=== PATIENT | female | born 1970 | race Caucasian/White ===

== ENCOUNTER → 2016-10-12 | Outpatient (CLI) | payer BC ==
--- NOTE | 2016-10-13 08:16 | MR ---
EXAMINATION TYPE: MR sacroiliac joints wo con DATE OF EXAM: 10/12/2016 8:40 PM COMPARISON: NONE HISTORY: Tai hip pain, limited movement Standard multiplanar, multisequence MRI departmental protocol Multiplanar, multisequence images of the SI joints were acquired. Diffusion weighted imaging was perf ormed. FINDINGS: SI joints are symmetric in appearance. There is no evidence of marrow edema or fatty replacement. No erosive changes seen. Postsurgical change of L5 suggestive of previous left hemilaminectomy severe degenerative disc diseas e. Central and left paracentral disc bulging with foraminal encroachment bilaterally greater on the l eft suspected. Facet arthropathy noted. IMPRESSION: 1. No evidence of sacroiliitis. 2. Postsurgical change L5 with disc bulging and foraminal encroachment as discussed above
--- NOTE | 2016-10-13 08:16 | MR ---
EXAMINATION TYPE: MR lumbar spine wo/w con DATE OF EXAM: 10/12/2016 8:55 PM COMPARISON: NONE Contrast: 16 mL MultiHance HISTORY: LBP radiating down left leg x 1 month, hx surgery TECHNIQUE: T1 and T2 axial and sagittal images of the lumbar spine are submitted. FINDINGS: There is no abnormal signal seen within the visualized spinal cord or paraspinal soft tissu es. Findings suspicious for tiny gallstones. At L1-2 there is no evidence of disc herniation or canal stenosis. No degenerative disc disease or fo raminal encroachment. At L2-3 there is no evidence of disc herniation or canal stenosis. No degenerative disc disease or fo raminal encroachment. At L3-4 there is moderate to large sized central disc herniation with moderate compression of the the rigo sac. Neural foramina remain patent. Mild facet arthropathy. At L4-5 there is there is disc desiccation and broad-based disc bulging centrally with a greater righ t paracentral component. There is mild anterior effacement of the thecal sac. Postcontrast images do demonstrate some enhancement along the posterior margin of the disc space which may represent granula tion tissue rather than be infectious. Correlate for previous surgery. Correlate with sedimentation r ate if there is concern for discitis. Granulation tissue and disc bulging favored. At L5-S1 there is there is evidence of facet arthropathy and left hemilaminectomy. There is central d isc bulging which extends paracentrally and laterally to the left resulting in moderate left foramina l encroachment. There does appear to be some contact with the left nerve root. Right neural foramina demonstrates mild foraminal encroachment. IMPRESSION: 1. Moderate sized central disc herniation with significant compression of the thecal sac L3-L4. 2. Postsurgical change L5-S1 with disc bulging centrally. The disc bulging does extend greater parace ntrally and laterally to the left with moderate left-sided foraminal encroachment suspected nerve renuka t contact. 3. Central and right paracentral broad-based disc bulge L4-L5. There is some enhancement along the p osterior disc space. This may be related to granulation tissue rather than discitis. Correlate clinic ally for confirmation.
== END | disposition home or self-care (01) ==
LOC: RADMRIMAIN 19:55
PROVIDERS: ATTEND Internal Medicine Rheumatology
DX: M99.73 Connective tissue and disc stenosis of intervertebral foramina of lumbar region (principal); M51.27 Other intervertebral disc displacement, lumbosacral region; M51.26 Other intervertebral disc displacement, lumbar region; Z98.890 Other specified postprocedural states
CPT/HCPCS: 72158; 72195; A9577

== ENCOUNTER → 2017-02-27 | Outpatient (CLI) | payer BC | END | disposition home or self-care (01) | LOC: LABWHC1 15:50 | PROVIDERS: ATTEND Physician Assistant Medical | DX: Z01.812 Encounter for preprocedural laboratory examination (principal) | CPT/HCPCS: 36415; 81050; 82570; 82575; 84156 ==

== ENCOUNTER 2017-11-19 11:52 | Day surgery (SDC) | payer BC ==
[2017-11-16 10:15] VITALS: BMI 27.7
[~2017-11-19 11:52] MED LIST: DEXAMETHASONE SOD PHOSPHATE 10 MG/ML 1 ML VIAL IV ONE; HEPARIN SODIUM,PORCINE 5,000 UNIT/ML 1 ML VIAL SQ ONE; LACTATED RINGERS 1,000 ML IV SCH; MIDAZOLAM 2 MG/2 ML VIAL IV PRN; ONDANSETRON 4 MG/2 ML VIAL IVP ONE; SCOPOLAMINE 1.5MG/72HR PATCH TRANSDERM ONE; ceFAZolin IN SWFI 2 GM/20 ML SYRINGE IVP ONE; fentaNYL (PF) 50 MCG/ML 2 ML AMP IV PRN
--- NOTE | 2017-11-19 13:15 | P.GSHP ---
History of Present Illness H&P Date: 11/19/17 Chief Complaint: Right upper quadrant pain This a 47 row female who's had complaints of right upper quadrant pain. Patient underwent recent workup found have evidence of cholelithiasis and sludge. Patient's today for laparoscopic cholecystectomy. Past Medical History Past Medical History: Fibromyalgia, Thyroid Disorder Additional Past Medical History / Comment(s): ankylosing spondylitis, "low blood pressure", frequent UTI's. diarrhea and n/v for the past 5 weeks,hx elevated creatinine level pt states was r/t motrin use has since stopped motrin dr monitoring levels History of Any Multi-Drug Resistant Organisms: None Reported Past Surgical History: Back Surgery, Section, Hysterectomy, Orthopedic Surgery, Tubal Ligation Additional Past Surgical History / Comment(s): tumor removed rt thigh, rt ankle surgery, rt ankle fusion surgery, back surgery x 2, neck surgery(titanium cage), Past Anesthesia/Blood Transfusion Reactions: Motion Sickness, Postoperative Nausea & Vomiting (PONV) Additional Past Anesthesia/Blood Transfusion Reaction / Comment(s): has used scopolamine patch in patch with good results per pt Smoking Status: Former smoker - Past Family History Mother Family Medical History: Cancer Father Family Medical History: Deep Vein Thrombosis (DVT), Pulmonary Embolus Additional Family Medical History / Comment(s): "blood clot in leg went to the lung" Son(s) Family Medical History: Cancer Medications and Allergies Home Medications Medication Instructions Recorded Confirmed Type Adalimumab [Humira Pen] 40 mg SQ Q14D 08/11/14 11/19/17 History Topiramate [Topamax] 100 mg PO QAM 08/11/14 11/16/17 History Levothyroxine Sodium [Synthroid] 100 mcg PO DAILY 07/06/16 11/19/17 History Meclizine [Antivert] 12.5 mg PO TID PRN 07/06/16 11/16/17 History Nitrofurantoin Monohyd/M-Cryst 100 mg PO DAILY PRN 07/06/16 11/19/17 History [Macrobid] Cholecalciferol [Vitamin D3] 5,000 unit PO DAILY 11/16/17 11/16/17 History sulfaSALAzine [Azulfidine] 1,000 mg PO DAILY 11/16/17 11/16/17 History Allergies Allergy/AdvReac Type Severity Reaction Status Date / Time kiwi Allergy Severe Anaphylaxis Verified 11/19/17 12:51 amoxicillin Allergy vomiting/ra Verified 11/19/17 12:51 sh codeine Allergy Vomiting,ra Verified 11/19/17 12:51 sh levofloxacin [From Levaquin] Allergy Rash/Hives Verified 11/19/17 12:51 loracarbef [From Lorabid] Allergy Rash/Hives Verified 11/19/17 12:51 Penicillins Allergy Vomiting,ra Verified 11/19/17 12:51 sh Surgical - Exam Vital Signs Temp Pulse Resp BP Pulse Ox 98.2 F 65 16 128/73 98 11/19/17 13:06 11/19/17 13:06 11/19/17 13:06 11/19/17 13:06 11/19/17 13:06 - General well developed, no distress - Eyes PERRL - ENT normal pinna - Neck no masses - Respiratory normal expansion - Cardiovascular Rhythm: regular - Abdomen Abdomen: soft, non tender Assessment and Plan Assessment: Right upper quadrant pain Cholelithiasis, cholecystitis. We'll perform laparoscopic cholecystectomy.
[2017-11-19] MEDS ORDERED: LIDOCAINE 1% INJ 10MG/ML (20 ML MDV) ONE (14:08)
[2017-11-19] MEDS ORDERED: NEOSTIGMINE 1 MG/ML 10 ML VIAL ONE (14:08)
[2017-11-19] MEDS ORDERED: SUCCINYLCHOLINE CHLORIDE 100 MG/5 ML SYR IV ONE (14:08)
[2017-11-19] MEDS ORDERED: MEPERIDINE 50 MG/ML SYRINGE ONE (14:08)
[2017-11-19] MEDS ORDERED: MIDAZOLAM 2 MG/2 ML VIAL ONE (14:08)
[2017-11-19] MEDS ORDERED: PROPOFOL 10 MG/ML 20 ML VIAL IV ONE (14:08)
[2017-11-19] MEDS ORDERED: GLYCOPYRROLATE 0.2 MG/ML 2 ML VIAL ONE (14:08)
[2017-11-19] MEDS ORDERED: fentaNYL (PF) 50 MCG/ML 2 ML AMP ONE (14:08)
[2017-11-19] MEDS ORDERED: KETOROLAC 30 MG/ML 1 ML VIAL ONE (14:08)
[2017-11-19] MEDS ORDERED: ROCURONIUM BROMIDE 10 MG/ML 10 ML VIAL IV ONE (14:08)
[2017-11-19] MEDS ORDERED: BUPIVACAINE (PF) 0.25% 30 ML VIAL SQ ONE ×2 (14:31)
[2017-11-19] MEDS ORDERED: LACTATED RINGERS 1,000 ML IV ONE ×2 (14:33→15:52)
--- NOTE | 2017-11-19 15:07 | P.OP ---
Date of Procedure: 11/19/17 Preoperative Diagnosis: Cholecystitis Postoperative Diagnosis: Cholecystitis Procedure(s) Performed: Laparoscopic cholecystectomy Anesthesia: ZURI Surgeon: Ulysses Byers Estimated Blood Loss (ml): 5 Pathology: other (Gallbladder) Condition: stable Disposition: PACU Description of Procedure: MThe patient was placed on the operating table. The patient received a general endotracheal tube anesthesia. The patients abdomen was prepped and draped in the usual sterile fashion. Through an infraumbilical stab incision , the fascia of the anterior abdominal wall was grasped with a pair of Kochers and then the Veress needle was placed in the peritoneal cavity. Position of the Veress needle was confirmed with positive drop test. The abdomen was then insufflated. After adequate insufflation, the 10 mm trocar was placed in the peritoneal cavity. Following this the laparoscope was placed in the peritoneal cavity. The patient was placed in the head-up, right side up position and then a 5 mm trocar was placed in the right lateral and right subcostal position under direct visualization. A 8 mm trocar was placed in the epigastric position. The gallbladder was grasped in the fundus and infundibulum. Traction on the gallbladder was placed in the lateral and the cephalad positions. The triangle of Calot was visualized.. The cystic duct was bluntly dissected until the union of the cystic duct and common bile duct was seen. The cystic duct was then divided and sealed with the Harmonic scissors. A PDS Endoloop was then placed throughout the cystic duct stump. The cystic artery divided and sealed with the Harmonic scissors. The gallbladder was then removed from the liver bed using Harmonic scissors. The gallbladder was then extracted through the epigastric port site. Operative field was checked for any bleeding spots and Harmonic scissors was used to coagulate the liver bed. The abdomen was irrigated. The trocars were removed. The skin was closed using interrupted 3-0 Vicryl suture. Dermabond dressing were applied. The patient tolerated the procedure well.
[2017-11-19 15:13] VITALS: TEMP 97.5
[2017-11-19] MEDS ORDERED: ONDANSETRON 4 MG/2 ML VIAL IVP ONE (15:30)
[2017-11-19 16:31] VITALS: RESP 16
[2017-11-19 17:35] VITALS: BP 125/69; PULSE 66
== END 2017-11-19 18:07 | disposition home or self-care (01) ==
LOC: OR 11:52
PROVIDERS: ATTEND Surgery
DX: K80.10 Calculus of gallbladder with chronic cholecystitis without obstruction (principal); M79.7 Fibromyalgia; E07.9 Disorder of thyroid, unspecified; M45.9 Ankylosing spondylitis of unspecified sites in spine; Z87.440 Personal history of urinary (tract) infections; Z79.890 Hormone replacement therapy; Z79.899 Other long term (current) drug therapy; Z88.1 Allergy status to other antibiotic agents; Z88.0 Allergy status to penicillin; Z91.018 Allergy to other foods; Z88.5 Allergy status to narcotic agent; Z98.51 Tubal ligation status; Z87.891 Personal history of nicotine dependence
CPT/HCPCS: 88304; 47562; J2250; J1644; J1100; J2710; J2175; J2405; J2001; J3010; J1885; J0330; J2704; J0690